=== PATIENT | female | born 1980 | race African-American/Black ===

== ENCOUNTER 2022-12-11 09:15 | Emergency (ER) | payer MEDICAID, SELFPAY ==
[2022-12-11 09:16] VITALS: BP 140/91; PULSE 103; RESP 16; TEMP 36.4; O2SAT 99; BMI 42.0
--- NOTE | 2022-12-11 09:26 | ED.RN ---
pt. refused to get into bed at this time. This RN informed patient she would need to get into bed to be assessed by Dr. Patient also stated Am I going to have to tell you whats wrong more than once.
--- NOTE | 2022-12-11 09:56 | VDLE_ITS ---
Reason For Study: Rt Leg Pain RIGHT LEFT GSV is normal. CFV is compressible, spontaneous, phasic, CFV is compressible, spontaneous, phasic, competent, and demonstrates normal competent and demonstrates normal augmentation. augmentation. FV is compressible, spontaneous, phasic, competent and demonstrates normal augmentation. POP V is compressible, spontaneous and phasic. T/P Trunk is compressible. PTV is compressible. Acute deep vein thrombosis is noted in the Per V. It is dilated and NONCOMPRESSIBLE. Procedure This is a venous duplex using B-mode, color flow and spectral Doppler. Exam performed portable in ED. The exam was diagnostic. A preliminary report was called and/or faxed to Dr. Upton. VL/Venous Duplex US, Unilateral Interpretation Summary Acute deep vein thrombosis is noted in the right peroneal vein. Ordering Physician: Elías Upton Referring Physician: N/A Performed By: Rory Butt RVChristiano
--- NOTE | 2022-12-11 09:57 | ED.VIS.BACK ---
HPI History of Present Illness Chief Complaint: Back Informant: patient Narrative Narrative: Patient presents with pain in her right low back, buttock, thigh, and swelling in her right lower extremity. She states the majority of this seemed to start yesterday evening, with the pain starting while she was sitting and not doing anything. She currently is in substance rehab for cocaine use, she has not used in weeks she states. She has been on buspirone for about a week. She has never had a DVT or PE but admits that she is very sedentary, no hospitalization or surgery or long travel recently. She is from [place]. Her leg is swollen all the way down to the ankle and she states that is very unusual for her. She states she had some tingling in her toes but she has a history of sciatica, she states this pain is different although she thinks she is having that as well. The sciatica is not new though. The pain in her thigh is. She states the whole leg seems swollen. She denies any chest pain, shortness of breath, fevers, she states initially she thought her right leg was weak, but then after further discussion she admits that she also thinks that she was really having difficulty moving it because it hurts so bad to do so. [facility] Medical History (Updated 12/11/22 @ 11:[address] Elías Upton MD) Cocaine abuse Sciatica Allergy/AdvReac Type Severity Reaction Status Date / Time amoxicillin Allergy Hives Verified 12/11/22 09:20 aspirin Allergy Hives Verified 12/11/22 09:20 Penicillins Allergy Hives Verified 12/11/22 09:20 Pork/Porcine Containing AdvReac Other Verified 12/11/22 09:20 Products Social History Smoking Status: Never smoker ROS ROS ED Constitutional Constitutional ED: Denies chills or fever(s) Cardiovascular Cardiovascular: Reports as per HPI and leg edema; Denies chest pain, palpitations or racing heartbeat Gastrointestinal Gastrointestinal: Denies abdominal pain, constipation, fecal incontinence, nausea or vomiting Genitourinary Genitourinary ED: Reports other Details: no urinary retention ; Denies abdominal discomfort or urinary incontinence Musculoskeletal Musculoskeletal: Reports as per HPI, back pain and extremity pain; Denies neck pain Integumentary Denies rash or wounds Neurologic Neurologic: Denies headache(s), paresthesias or weakness EXAM Physical Exam Const Vital Signs: 12/11/22 09:16 Temperature 97.6 F L Temperature Source Temporal Pulse Rate 103 H Respiratory Rate 16 Blood Pressure 140/91 H Blood Pressure Mean 107 Pulse Ox 99 Oxygen Delivery Method Room Air Positive well nourished, well developed and obese General Appearance ED: well developed and NAD Nutritional Appearance: obese HEENT Negative for trauma or tenderness Eyes PERRL and EOMs intact bilaterally Neck full ROM and supple Resp normal respiratory effort and clear to auscultation bilaterally Cardio regular rate and regular rhythm GI normal to inspection, nondistended, normoactive bowel sounds, soft to palpation and non-tender Back/Spine normal to inspection Lumbar Spine / Lower Back: ROM limited, paraspinal muscle tenderness and straight leg raise negative bilaterally; Negative for lumbar spinal tenderness Extremity normal to inspection, full ROM and no pedal edema Extremity Narrative: Tender throughout the thigh all areas, normal inspection. No palpable cords. No abscesses, all compartments soft and nondistended. Patient less tender in the lower leg. Full range of motion of all joints without difficulty, just limited due to pain in the thigh when she uses her quadriceps especially. She has tenderness throughout the lateral area not at the greater tuberosity prominence, but in the external rotators and the buttock and the right paraspinal lumbosacral back. Strong 2+/4 dorsalis pedis pulses. Right lower extremity is mildly edematous compared with the left. Patient indicates my leg is swollen, not fat. Neuro oriented x3 and no sensory deficits noted Neuro Narrative: No focal neurologic deficits Sensorium / Orientation: alert Motor Exam: strength 5/5 throughout and clonus absent Deep Tendon Reflexes: Rt Patellar (L4): 2+, Lt Patellar (L4): 2+, Rt Ankle (S1): 2+ and Lt Ankle (S1): 2+ Deep Tendon Reflexes Back: Rt Patellar (L4): 2+, Lt Patellar (L4): 2+, Rt Ankle (S1): 2+ and Lt Ankle (S1): 2+ Plantar Reflex: Downgoing: bilateral Psych mental status grossly normal and thought process normal Skin no rashes or lesions noted and no wounds MDM MDM MDM Narrative Medical decision making narrative: Obtained a duplex Doppler ultrasound of right lower extremity, shows an acute peroneal DVT distal to the trifurcation, and no other signs of thromboembolic disease. I do not think this is causing her thigh pain, which seems more muscular, and she is having sciatica as well. I treat her symptoms here with Toradol and Norflex injections, and she can be safely discharged home with serial ultrasounds, discussed with Dr. Spain, who provided recommendations for serial ultrasounds on days #3, 10, 30, she will be local for the first 2 but not the other 1, and agrees that she does not require any acute anticoagulation for this. He advised me to give the patient his office information, as well as a written prescription for the ultrasound on day #3 and his office can help arrange the rest. Discharge Plan Triage Chief Complaint: Back ED Provider: Elías Upton Dx/Rx/DC Orders Clinical Impression: Acute deep vein thrombosis (DVT) of right peroneal vein, Muscle spasm of right lower extremity, Right sided sciatica Instructions: DVT Dc Other Ambulatory Orders: Venous Duplex US, Unilateral (Routine) Timeframe: 20221213 Facility: [facility] - Location: [facility] Ordered By: Dr. Elías Upton Primary Care Provider: NICKY LEE Referrals: NICKY LEE [Other] Zachary Spain MD [Med Staff - Active Staff] - As soon as possible (call for follow up info/directions for subsequent screening leg ultrasounds) Disposition Disposition: Home, Self Care
[2022-12-11] MEDS: Ketorolac 60 MG/2 ML Vial IM (12:00)
[2022-12-11] MEDS: Orphenadrine 60 MG/2 ML Ampul IM (12:01)
--- NOTE | 2022-12-13 09:45 | ED.RN ---
Addendum entered by Gerda Mcclelland 12/13/22 10:21: PATIENT ADVISED ON WHEN TO RETURN TO ED FOR WORSENING SYMPTOMS, SHE CONTINUED TO OVER-TALK THIS NURSE AND THE PHONE CALL WAS ABRUPTLY ENDED BY PATIENT. Original Note: THIS PATIENT'S PHONE CALL WAS RECEIVED IN TRIAGE FROM [facility] OVER CONCERNS THAT PT WAS FRUSTRATED WITH THE VENOUS US ORDER FOR TODAY, THAT WAS ORDERED BY DR BARROS IN ED. INITIALLY I TOLD PATIENT I WAS GOING TO MAKE SOME PHONE CALLS TO SEE ABOUT GETTING THIS TEST DONE AND PLACED HER ON HOLD. I SPOKE WITH ULTRASOUND AND ED CHARGE NURSE REGARDING PATIENT HAVING AN ORDER FOR THE ULTRASOUND BUT DID NOT HAVE IT ON SCHEDULE FOR TODAY, USUALLY THERE IS NO DVT STUDY DONE ON WEEKEND. THIS WAS CONFIRMED THAT NO TEST CAN BE PERFORMED TODAY AN OUTPATIENT. PATIENT WAS ADVISED OF THIS AND I EMPATHIZED HER CONCERNS HOWEVER THERE WERE ONLY A COUPLE OPTIONS: F/U WITH DR MONDRAGON'S OFFICE THIS MORNING TO SEE IF THERE WAS ANOTHER OPTION FOR AN ULTRASOUND TODAY OR IF THIS TEST CAN BE HELD UNTIL THURSDAY, F/U WITH DR MONDRAGON'S OFFICE TO SEE IF BLOOD THINNER MEDICATIONS WERE WARRANTED AT THIS TIME, OR BE SEEN IN AN EMERGENCY DEPT THAT IS CAPABLE OF PERFORMING AN ULTRASOUND TODAY, BE RESEEN IN [facility] ER; WITH EMPHASIS ON CALLING DR MONDRAGON OFFICE FOR FURTHER ADVISE. PATIENT CONTINUES TO STATE WELL I GUESS IF THE CLOT TRAVELS TO MY LUNGS AND I , MY LOCKSMITH WILL BE KNOCKING ON YOUR DOOR AND CONTINUES TO OVER TALK THIS NURSE WHEN I TRY TO STATE THE OPTIONS WE HAVE.
--- NOTE | 2022-12-13 10:01 | ED.RN ---
CALKER SINDHU AWARE OF CONVERSATION THIS NURSE HAD WITH PATIENT.
--- NOTE | 2022-12-13 10:19 | ED.RN ---
SINDHU SPOKE WITH [facility] AND [facility] WAS ALREADY ON CAMPUS FOR ANOTHER TESTING AND OFFERED TO CONTACT PATIENT TO SET UP TEST TODAY. [facility] NOTIFIED THIS NURSE THAT PATIENT WAS CONTACTED AND PATIENT VERBALIZED TO HIM SHE WOULD HOLD OFF ON TESTING TODAY AND WOULD HAVE THE TEST DONE ON THURSDAY. FOR FUTURE, [facility] STATED IF PATIENT ARRIVES ON THURSDAY AND THERE IS CONFUSION PATIENT IS TO BE ER REG AND [facility] CONTACTED FOR THE TEST.
== END 2022-12-11 12:15 | disposition home or self-care (01) ==
PROVIDERS: Emergency Provider Emergency Medicine; Visit Provider Emergency Medicine
DX: I82.451 Acute embolism and thrombosis of right peroneal vein (principal); M62.838 Other muscle spasm; M54.31 Sciatica, right side
CPT/HCPCS: 93971; 99282

== ENCOUNTER → 2022-12-15 | Outpatient (CLI) | payer MEDICAID, SELFPAY ==
--- NOTE | 2022-12-15 11:17 | VDLE_ITS ---
Reason For Study: Rt Leg Swelling RIGHT LEFT GSV is normal. CFV is compressible, spontaneous, phasic, CFV is compressible, spontaneous, phasic, competent, and demonstrates normal competent and demonstrates normal augmentation. augmentation. FV is compressible, spontaneous, phasic, competent and demonstrates normal augmentation. POP V is compressible, spontaneous, phasic, competent and demonstrates normal augmentation. T/P Trunk is compressible. PTV is compressible. RT Laly V is PARTIALLY COMPRESSIBLE and dilated. Flow is noted with color doppler in the vessel. Procedure This is a venous duplex using B-mode, color flow and spectral Doppler. Exam performed in department. The exam was diagnostic. VL/Venous Duplex US, Unilateral Interpretation Summary Acute deep vein thrombosis is noted in the right peroneal vein. Unchanged from previous study Ordering Physician: Elías Upton Referring Physician: N/A Performed By: Rory Butt, LUIS
== END | disposition home or self-care (01) ==
PROVIDERS: Referring Provider Emergency Medicine; Visit Provider Emergency Medicine
DX: M79.89 Other specified soft tissue disorders (principal)
CPT/HCPCS: 93971